=== PATIENT | male | born 1975 | race Caucasian/White ===

== ENCOUNTER 2021-05-26 18:32 | Emergency (ER) | payer SELFPAY ==
[~2021-05-26] VITALS: Ht 175.3 cm; Wt 79.4 kg
[2021-05-26 18:55] VITALS: BP 159/118
[2021-05-26] MEDS ORDERED: diphenhydrAMINE HCL 25 MG CAPSULE ONE (19:16)
[2021-05-26] MEDS ORDERED: predniSONE 20 MG TABLET ONE (19:16)
[2021-05-26] MEDS ORDERED: FAMOTIDINE (20 MG) 20 MG TABLET ONE (19:16)
[2021-05-26] MEDS ORDERED: FAMOTIDINE (20 MG) 20 MG TABLET PO ONE (19:30)
[2021-05-26] MEDS ORDERED: predniSONE 20 MG TABLET PO ONE (19:30)
[2021-05-26] MEDS ORDERED: diphenhydrAMINE HCL 25 MG CAPSULE PO ONE (19:30)
[2021-05-26] MEDS ORDERED: PRED20TA PO (20:06)
[2021-05-26] MEDS ORDERED: DIPH25CA83 PO (20:06)
== END 2021-05-26 20:16 | disposition home or self-care (01) ==
LOC: ER 19:00
DX: R21 Rash and other nonspecific skin eruption (principal); I10 Essential (primary) hypertension; Z79.899 Other long term (current) drug therapy
CPT/HCPCS: 99284; J7512; Q0163